=== PATIENT | male | born 1990 | race Caucasian/White ===

== ENCOUNTER → 2017-09-26 | Outpatient (CLI) | payer OTHER ==
[2017-09-26 13:30] LABS: COLLECTION METHOD DRY COLLECTION; SPECIMEN CONTAINER POLYPROPYLENE CUP; SPERM MORPHOLOGY SENT TO REFERENC LAB
[2017-09-26 14:23] LABS: COLLECTION SITE OFF-SITE; DAYS ABSTINENT 2 DAYS (2-7); ROUND CELL CONC. 2.1 X10^6/mL (<5.1); SA DILUTION CNT 1 298; SA DILUTION CNT 2 339; SA DILUTION FACTOR 3; SA NONMOTILE CONCENTRATION 16.9 X10^6/mL; SA NONMOTILE COUNT1 172; SA NONMOTILE COUNT2 165; SA ROUND CELL COUNT1 23; SA ROUND CELL COUNT2 19; SA SPERM MOTILE CONC 78.7 X10^6mL; SEMEN TESTING TIME 1355; SPERM CONCENTRATION 95.6 X10^6/mL (>12.0); TOTAL SPERM COUNT 573.6 X10^6 (>33.0)
[2017-09-26 14:24] LABS: SPERM PROGRESSION 3
== END ==
LOC: LAB 13:27
PROVIDERS: ATTEND Specialist
DX: N46.9 Male infertility, unspecified (principal)
CPT/HCPCS: 89320